=== PATIENT | female | born 1945 | race Caucasian/White ===

== ENCOUNTER 2022-05-05 16:27 | Inpatient (IN) | payer OTHER ==
[~2022-05-05] VITALS: Ht 157.5 cm; Wt 51.4 kg
[2022-05-05 16:30] VITALS: BP_SYST 129
--- NOTE | 2022-05-05 16:30 | NUR ---
Patient to ER bed 5 to gown for evaluation. Side rails up.
--- NOTE | 2022-05-05 16:32 | NUR ---
ER at bedside examining patient.
[2022-05-05] MEDS ORDERED: MECLIZINE HCL 25 MG TABLET (ANITVERT) PO ONE (16:45)
[2022-05-05] MEDS ORDERED: NACL 0.9% 1,000 ML IV ONE ×3 (16:45→19:15)
[2022-05-05 17:09] LABS: BASOPHILS # (AUTO) 0.1 K/uL (0.0-0.2); BASOPHILS % (AUTO) 1.1 % (0.0-2.0); EOSINOPHILS # (AUTO) 0.1 K/uL (0.0-0.4); EOSINOPHILS % (AUTO) 1.3 % (0.0-4.0); HEMATOCRIT 37.8 % (36-48); HEMOGLOBIN 12.7 g/dL (12.0-16.0); LYMPHOCYTES # (AUTO) 2.1 K/uL (1.0-5.5); LYMPHOCYTES % (AUTO) 27.3 % (20.5-51.5); MEAN CORPUSCULAR HEMOGLOBIN 31 pg (27-31); MEAN CORPUSCULAR HGB CONC 34 % (32-36); MEAN CORPUSCULAR VOLUME 91 fL (79.0-98.0); MONOCYTES # (AUTO) 0.9 K/uL (0.0-1.0); MONOCYTES % (AUTO) 11.4 % (1.7-9.3); NEUTROPHILS # (AUTO) 4.6 K/uL (1.8-7.7); NEUTROPHILS % (AUTO) 58.9 % (40.0-70.0); PLATELET COUNT (AUTO) 232 K/uL (130-430); RED BLOOD CELL COUNT(AUTO) 4.16 MIL/uL (4.2-6.2); RED CELL DISTRIBUTION WIDTH 15.6 % (9.0-15.0); WHITE BLOOD COUNT (AUTO) 7.8 K/uL (4.8-10.8)
[2022-05-05 17:38] LABS: ANION GAP 8 (5-15); CALCIUM 9.5 mg/dL (8.4-11.0); CHLORIDE 99 mmol/L (98-107); CREATININE 0.96 mg/dL (0.55-1.30); GLUCOSE 169 mg/dL (70-99); UREA NITROGEN, BLOOD 20 mg/dL (8-21)
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
[2022-05-05 17:46] LABS: ALANINE AMINOTRANSFERASE 21 U/L (12-78); ALBUMIN 3.9 g/dL (3.4-4.8); ASPARTATE AMINOTRANSFERASE 33 U/L (10-37); TOTAL BILIRUBIN 0.3 mg/dL (0.0-1.0)
[2022-05-05 17:50] LABS: ALCOHOL, BLOOD < 3 mg/dL (<10)
--- NOTE | 2022-05-05 19:43 | NUR ---
ROWAN SWABBED AND SENT TO LAB
[2022-05-05] MEDS ORDERED: DIPHENHYDRAMINE INJ 50 MG/ML VIAL IVP ONE (20:15)
[2022-05-05] MEDS ORDERED: METOCLOPRAMIDE HCL 10 MG/2 ML VIAL IVP ONE (20:15)
[2022-05-05] MEDS ORDERED: POTASSIUM CHLORIDE 20 MEQ/PKT PACKET PO ONE (20:15)
--- NOTE | 2022-05-05 20:15 | NUR ---
PATIENT COMPLAINING OF DIZZINESS WITH RAPID POSITION CHANGES. MD NOTIFIED.
[2022-05-05 20:35] LABS: BILIRUBIN,URINE NEGATIVE (NEGATIVE); BLOOD, URINE NEGATIVE (NEGATIVE); COLOR,URINE YELLOW (YELLOW); GLUCOSE,URINE NEGATIVE (NEGATIVE); KETONES,URINE NEGATIVE (NEGATIVE); LEUKOCYTE ESTERASE ,URINE 1+ (NEGATIVE); NITRITE, URINE POSITIVE (NEGATIVE); PROTEIN URINE NEGATIVE (NEGATIVE); UROBILINOGEN,URINE 0.2 (0.2-1.0)
--- NOTE | 2022-05-05 20:37 | NUR ---
Admit bed requested Patient will be admitted to care of . Admitted to TELE unit. Diagnosis TIA,VERTIGO Inpatient (Yes or No) YES Observation (Yes or No) NO Orientation concerns or request close to nursing station (Yes or No) YES Covid Status PENDING On vent or bipap NO Isolation requirements NO Needs a sitter NO From Home (Yes or if No enter name of facility) HOMELESS Requires Dialysis (Yes or No) NO Med Rec Completed (Yes of No) PENDING
[2022-05-05 20:42] LABS: CLARITY/URINE SLIGHTLY CLOUDY (CLEAR)
[2022-05-05 20:56] LABS: BACTERIA,URINE MANY /HPF (None Seen); RBC,URINE 0-3 /HPF (0-3); WBC,URINE 20-50 /HPF (0-3)
[2022-05-05 20:57] LABS: MUCUS,URINE None Seen /LPF (None Seen)
[2022-05-05 21:12] LABS: BARBITURATE, URINE NEGATIVE (NEG <=200); BENZODIAZEPINE, URINE NEGATIVE (NEG <=150); CANNABINOID, URINE NEGATIVE (NEG <=50); COCAINE, URINE NEGATIVE (NEG <=150); METHAMPHETAMINES SCREEN,URINE NEGATIVE (NEG <=500); OPIATE, URINE NEGATIVE (NEG <=100); PHENCYCLIDINE SCREEN,URINE NEGATIVE (NEG <=25); UR TRICYCLIC ANTIDEPRESSANTS NEGATIVE (NEG <=300); URINE AMPHETAMINE NEGATIVE (NEG <=500); URINE METHADONE NEGATIVE (NEG <=200); URINE OXYCODONE SCREEN NEGATIVE (NEG <=100); URINE PROPOXYPHENE SCREEN NEGATIVE (NEG <=300)
[2022-05-05 21:31] LABS: ACETAMINOPHEN < 1 ug/mL (1-30)
[2022-05-05 23:50] VITALS: BP_SYST 145
[2022-05-06] MEDS: D5/0.45 NS 1,000 ML IV SCH ×3 (00:56→19:15)
--- NOTE | 2022-05-06 03:20 | NUR ---
CONSULTATION CALLED FOR DR. DWYER FOR CONSULT OF GI ORDER BY DR. AL SPOKE WITH BIRDGET
--- NOTE | 2022-05-06 04:23 | NUR ---
PATIENT IN BED RESTING AT THIS TIME. PATIENT WAS COMPLIANT WITH ADMISSION ASSESSMENT UP UNTIL NURSE ASK SUICIDE QUESTIONS IN WHICH THE PATIENT RESPOND THAT SHE WAS OFFENDED BY THE QUESTION AND STATED THAT SHE REFUSED TO ANSWER ANY FURTHER QUESTIONS AND WAS NOT SUICIDAL. WHEN NURSE ATTEMPTED TO ASK OTHER QUESTIONS PATIENT STATED THAT SHE SAID SHE WAS NOT ANSWERING NO MORE QUESTIONS. CHARGE NURSE NOTIFIED.
--- NOTE | 2022-05-06 06:22 | NUR ---
PATIENT IN BED RESTING, USES CALL LIGHT, ABLE TO MAKE NEEDS KNOWN, HOMELESS, REFUSES CARE, SR, VSS, NO WOUNDS VISUALIZED, HOWEVER PATIENT REFUSED FULL BODY ASSESSMENT. PATIENT HAS HER OWN DIAPERS THAT SHE BROUGHT WITH HER.
[2022-05-06 07:00] VITALS: BP_SYST 168
[2022-05-06 08:00] VITALS: BP_SYST 168
[2022-05-06 08:52] LABS: ANION GAP 10 (5-15); CALCIUM 9.4 mg/dL (8.4-11.0); CHLORIDE 102 mmol/L (98-107); CREATININE 0.75 mg/dL (0.55-1.30); GLUCOSE 95 mg/dL (70-99); UREA NITROGEN, BLOOD 21 mg/dL (8-21)
[2022-05-06] MEDS: cefTRIAXone 1 GM in D5W 50 ML IV SCH (14:30)
[2022-05-06] MEDS: HYDROcodone/ACETAMIN 5-325 MG TAB (NORCO/ VICODIN) PO PRN ×2 (14:34→20:46)
--- NOTE | 2022-05-06 15:13 | NUR ---
CONSULT: Dayna MURGUIA [id number] S/W: LEANN
[2022-05-06 16:00] VITALS: BP_SYST 145
[2022-05-06 20:07] VITALS: BP_SYST 114
[2022-05-07] VITALS: BP_SYST 134
[2022-05-07] MEDS: HYDROcodone/ACETAMIN 5-325 MG TAB (NORCO/ VICODIN) PO PRN ×2 (04:19→09:15)
[2022-05-07] MEDS: D5/0.45 NS 1,000 ML IV SCH ×2 (04:19→23:00)
[2022-05-07 07:00] VITALS: BP_SYST 145
--- NOTE | 2022-05-07 07:17 | NUR ---
receive the patient from the counter maker rn in a stable condition with admitting diagnosis of altered mental status . aox3 with episode of confusion . no sign an symptoms of respiratory distress. no complain of pain at this time . will continue to monitor
[2022-05-07 07:59] LABS: BASOPHILS # (AUTO) 0.1 K/uL (0.0-0.2); BASOPHILS % (AUTO) 1.5 % (0.0-2.0); EOSINOPHILS # (AUTO) 0.1 K/uL (0.0-0.4); EOSINOPHILS % (AUTO) 1.9 % (0.0-4.0); HEMATOCRIT 35.8 % (36-48); HEMOGLOBIN 12.1 g/dL (12.0-16.0); LYMPHOCYTES % (AUTO) 36.1 % (20.5-51.5); MEAN CORPUSCULAR HEMOGLOBIN 31 pg (27-31); MEAN CORPUSCULAR HGB CONC 34 % (32-36); MEAN CORPUSCULAR VOLUME 90 fL (79.0-98.0); MONOCYTES # (AUTO) 0.9 K/uL (0.0-1.0); MONOCYTES % (AUTO) 15.5 % (1.7-9.3); NEUTROPHILS # (AUTO) 2.5 K/uL (1.8-7.7); PLATELET COUNT (AUTO) 220 K/uL (130-430); RED BLOOD CELL COUNT(AUTO) 3.96 MIL/uL (4.2-6.2); RED CELL DISTRIBUTION WIDTH 15.5 % (9.0-15.0)
[2022-05-07 08:27] LABS: ANION GAP 6 (5-15); CALCIUM 9.3 mg/dL (8.4-11.0); CHLORIDE 102 mmol/L (98-107); CREATININE 0.73 mg/dL (0.55-1.30); GLUCOSE 94 mg/dL (70-99)
[2022-05-07 08:40] LABS: WHITE BLOOD COUNT (AUTO) 5.5 K/uL (4.8-10.8)
[2022-05-07 09:15] LABS: UREA NITROGEN, BLOOD 17 mg/dL (8-21)
[2022-05-07] MEDS: cefTRIAXone 1 GM in D5W 50 ML IV SCH (13:58)
--- NOTE | 2022-05-07 19:00 | NUR ---
will endorse to film processing shift supervisor rn for continuity of care
--- NOTE | 2022-05-07 21:30 | NUR ---
Patient refusing vitals. Patient stated "That's not your name. I don't believe you. Get away from me!"
[2022-05-08] MEDS: D5/0.45 NS 1,000 ML IV SCH ×3 (01:15→21:15)
[2022-05-08] MEDS: HYDROcodone/ACETAMIN 5-325 MG TAB (NORCO/ VICODIN) PO PRN (02:31)
--- NOTE | 2022-05-08 02:31 | NUR ---
OOB, request pain med, refused IV start late entry Patient walked out of bed, in hallway asking for pain med. Reports generalized pain and Mathews given. She was informed will need to start IV and she refused; stating right now she wants all lights out and wants to be left alone.
[2022-05-08 02:46] VITALS: BP_SYST 152
--- NOTE | 2022-05-08 03:30 | NUR ---
Patient allowed vital signs to be taken but refused all other care. Dr. Chavez was at bedside and was made aware that patient has no IV access/refused IV start and is not currently receiving IV fluids. Dr. Chavez put IV Rocephin on hold and added PO Cipro, stating that susceptibility results should be back tomorrow.
--- NOTE | 2022-05-08 07:30 | NUR ---
Patient stable, care endorsed to oncoming nurse.
--- NOTE | 2022-05-08 07:58 | NUR ---
Patient refused am vitals.
[2022-05-08] MEDS: CIPROFLOXACIN HCL 500 MG TABLET PO SCH ×2 (09:40→09:43)
--- NOTE | 2022-05-08 09:47 | NUR ---
Pt refused cipro meds, said she needs a full dose of 500 mg.
--- NOTE | 2022-05-08 10:00 | NUR ---
Patient refused am meds.
[2022-05-08 11:39] VITALS: BP_SYST 144
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
--- NOTE | 2022-05-08 12:54 | NUR ---
CHIEF ANALYTICS OFFICER ACSW Radha emailed admitting to update patient's Next of Kin/Person to Notify with patient's son's Bert Muir
--- NOTE | 2022-05-08 15:28 | NUR ---
Discharge Planning: DCP faxed pt referral to [facility] [phone], DCP to follow up
[2022-05-08] MEDS ORDERED: NITROFURANTOIN MONOHYD/M-CRYST 100 MG CAPSULE (MacroBID) PO ONE (17:00)
[2022-05-08 17:19] VITALS: BP_SYST 136
--- NOTE | 2022-05-08 17:57 | NUR ---
Patient refused her abx medications.
--- NOTE | 2022-05-08 17:59 | NUR ---
Pt has been complaining the whole day that nobody has given her her medications. told her that order was changed, patient accused this rn of lying to her , offered her po abx and she refused.
[2022-05-08 21:00] VITALS: BP_SYST 135
[2022-05-08] MEDS: NITROFURANTOIN MONOHYD/M-CRYST 100 MG CAPSULE (MacroBID) PO SCH (21:00)
--- NOTE | 2022-05-08 21:35 | NUR ---
Patient REFUSE po medication abx procedures explained , still REFUSE / .
[2022-05-08] MEDS ORDERED: CIPROFLOXACIN HCL 500 MG TABLET PO SCH (22:00)
--- NOTE | 2022-05-09 03:54 | NUR ---
ASSIST Patient with colostomy care kept clean and dry as needed BRP noted .
[2022-05-09] MEDS: D5/0.45 NS 1,000 ML IV SCH ×2 (03:56→17:15)
[2022-05-09] MEDS: NITROFURANTOIN MONOHYD/M-CRYST 100 MG CAPSULE (MacroBID) PO SCH ×2 (08:18→20:49)
[2022-05-09] MEDS: HYDROcodone/ACETAMIN 5-325 MG TAB (NORCO/ VICODIN) PO PRN ×2 (08:19→17:09)
[2022-05-09 09:32] VITALS: BP_SYST 145
--- NOTE | 2022-05-09 12:45 | NUR ---
DIRECTOR OF STRATEGIC PROGRAMS MICHAEL Garcia met with patient to provide her update on securing placement at [facility]. ACSW also reiterated to patient importance of remaining in her room. Patient inquired into time of transport and ACSW informed her this was being worked on. ACSW provided update to assigned RN Tiffanie. ACSW will continue to be available as needed Addendum: 05/09/22 at 1419 by Radha Joseph MSW MICHAEL Radha received [facility] that [facility] due to behavioral concerns. MICHAEL attempted to address concerns with [facility] biofuels manager, but she again stated they will not be accepting patient. ACSW met with patient at bedside to provide update. Patient became upset and stated "they're lying about me". ACSW made attempts to redirect patient. She also expressed wanting to speak to "the patient care secretary" at her doctors office to help her. ACSW contacted Shwetha at Dr. Weldon to collaborate on addressing patient's concerns and input on possible placement options. ACSW will continue to be available as needed
[2022-05-09] MEDS ORDERED: Nitrofurantoin Monohyd/M-Cryst PO (12:53)
--- NOTE | 2022-05-09 13:09 | NUR ---
Discharge Planning: DCP followed up pt referral to [facility] [phone] accepted pt to 11A, DCP arrange transport with [facility] [phone] BLS 4:00pm. DCP made CM and nurse aware. Patient packet taken to nurse station.
--- NOTE | 2022-05-09 14:18 | NUR ---
rnnotmelvi called kathy for report. Kathy not admitting Jaycee at this time due to behavioral issues at this time per CM of Kathy.
--- NOTE | 2022-05-09 18:16 | NUR ---
rnnotes patient given norco for pain control this shift. Last one around 1700. Patient does not listen to requests, like stay in the room. She roams around at her free will not wanting to listen to anything. Took macrobid dose this AM.
[2022-05-09 19:00] VITALS: BP_SYST 139
[2022-05-09 20:00] VITALS: BP_SYST 139
--- NOTE | 2022-05-09 23:05 | NUR ---
Patient in bed. No acute distress noted. No c/o pain or discomfort. Will continue to monitor.
[2022-05-10] MEDS: D5/0.45 NS 1,000 ML IV SCH (03:27)
[2022-05-10 07:45] VITALS: BP_SYST 113
--- NOTE | 2022-05-10 07:45 | NUR ---
INITIAL ROUNDS Received pt AAOx3, talks about laser beams and protons at times. No s/s resp distress, no c/o pain or discomfort. Pt on contact isolation precautions for ESBL of the urine. Pt has a colostomy bag to RLQ, pt refused to let me see it. Pt focused on not being discharged yesterday, poor focus at times. Pt reoriented to place, encouraged to stay in her room-pt flat out refused. Side rails up x3, bed alarm on and room across from nursing station for safety. Call light within reach.
[2022-05-10] MEDS: NITROFURANTOIN MONOHYD/M-CRYST 100 MG CAPSULE (MacroBID) PO SCH (10:07)
[2022-05-10] MEDS: HYDROcodone/ACETAMIN 5-325 MG TAB (NORCO/ VICODIN) PO PRN (10:10)
--- NOTE | 2022-05-10 10:25 | NUR ---
COLOSTOMY BAG Colostomy bag changed, stoma pink, no redness to site. Pt tolerated well.
[2022-05-10 11:43] VITALS: BP_SYST 120
[2022-05-10 12:10] VITALS: BP_SYST 120
--- NOTE | 2022-05-10 12:20 | NUR ---
Discharge Planning: DCP arrange for transport with [facility] [phone] 1:00pm BLS to Suzan Whitting[facility] [phone] Rm [id number]. Patient packet taken to nurse station.
--- NOTE | 2022-05-10 13:25 | NUR ---
PT TRANSFERRED Report given to Sky LOBO at [facility]. Transfer packet with Transfer Orders and Medication Reconciliation form given to EMT with report. Exitcare provided. [facility] ID band not removed-pt refused to remove [facility] ID band and refused to let the nurse replace with ID band with pt's name and . Called patient's friend Selene at [phone] to reassure pt of transfer per pt's request. All belongings sent with patient. Patient left floor via gurney escorted by EMT in no distress.
--- NOTE | 2022-05-10 16:30 | NUR ---
Patient will be admitted to care of DR LOPES. Admitted to TELE unit. Will go to room 116B . Belongings list completed. Complete and up to date summary report printed. SBAR report to be given at bedside with opportunity for questions.
--- NOTE | 2022-05-11 11:44 | NUR ---
Dispo code 03
== END 2022-05-10 13:25 | DRG 690 ==
LOC: SED 16:27 → STU 23:51 → SMU 05-07 08:26
PROVIDERS: ADMIT Internal Medicine; ATTEND Internal Medicine
DX: N39.0 Urinary tract infection, site not specified (principal); Z20.822 Contact with and (suspected) exposure to COVID-19; Z59.00 Homelessness unspecified; Z85.038 Personal history of other malignant neoplasm of large intestine; Z87.891 Personal history of nicotine dependence; Z90.49 Acquired absence of other specified parts of digestive tract; Z93.3 Colostomy status; Z79.899 Other long term (current) drug therapy
CPT/HCPCS: 36415; 74018; 80048; 80053; 80307; 81000; 85025; 87086; 99285; A5061; G0378; G0480; G0481; G0482; J0696; J7030; J7060; J8597